=== PATIENT | female | born 1970 | race Caucasian/White ===

== ENCOUNTER 2017-04-07 11:05 | Emergency (ER) | payer OTHER ==
[~2017-04-07] VITALS: Ht 162.6 cm; Wt 58.2 kg
[2017-04-07] MEDS ORDERED: PROZ10 PO (11:57)
[2017-04-07] MEDS ORDERED: TRAZ-144 PO (11:57)
[2017-04-07] MEDS ORDERED: CARB100 PO (11:57)
[2017-04-07] MEDS ORDERED: METF500T4 PO (11:57)
[2017-04-07] MEDS ORDERED: HYDR-4031 PO (11:57)
[2017-04-07 12:03] LABS: GLUCOSE,POINT OF CARE 133 MG/DL (70-110)
[2017-04-07 12:12] VITALS: BP 111/75
== END 2017-04-07 13:51 | disposition home or self-care (01) ==
LOC: EMS 11:36
DX: Z02.89 Encounter for other administrative examinations (principal); E11.9 Type 2 diabetes mellitus without complications
CPT/HCPCS: 82962; 99282; 99283

== ENCOUNTER 2017-04-07 14:37 | Emergency (ER) | payer OTHER ==
[~2017-04-07] VITALS: Ht 162.6 cm; Wt 58.2 kg
[~2017-04-07 14:37] MED LIST: CARB100 PO; HYDR-4031 PO; METF500T4 PO; PROZ10 PO; TRAZ-144 PO
[2017-04-07] MEDS ORDERED: SODIUM CHLORIDE 0.9% 1,000 ML IV ONE (16:45)
[2017-04-07 17:21] LABS: BASOPHILS # (AUTO) 0.03 K/uL (0.00-0.20); BASOPHILS % (AUTO) 0.5 % (0.0-2.0); HEMATOCRIT 39.8 % (36-46); HEMOGLOBIN 13.2 g/dL (12.0-16.0); LYMPHOCYTES # (AUTO) 3.1 K/uL (1.0-4.8); LYMPHOCYTES % (AUTO) 61.7 % (22.0-44.0); MEAN CORPUSCULAR HEMOGLOBIN 32.1 pg (26.0-34.0); MEAN CORPUSCULAR HGB CONC 33.2 G/dL (31.0-37.0); MEAN CORPUSCULAR VOLUME 97 fL (80-100); MONOCYTES # (AUTO) 0.3 K/uL (0.1-1.0); NEUTROPHILS # (AUTO) 1.5 K/uL (1.8-7.7); NEUTROPHILS % (AUTO) 29.8 % (40.0-70.0); PLATELET COUNT (AUTO) 435 K/uL (150-450); RED BLOOD CELL COUNT(AUTO) 4.11 MIL/uL (4.00-5.20); RED CELL DISTRIBUTION WIDTH 14.6 % (11.5-14.5)
[2017-04-07 17:35] LABS: ANION GAP 9 mmol/L (8-16); CALCIUM, TOTAL 8.9 mg/dL (8.8-10.5); CARBON DIOXIDE 30 mmol/L (22-29); CHLORIDE 105 mmol/L (98-107); CREATININE 0.59 mg/dL (0.60-1.30); GLOMERULAR FILTR. RATE CALC > 60 mL/min (>60); SODIUM SERUM 144 mmol/L (136-145); UREA NITROGEN, BLOOD 9 mg/dL (7-18)
[2017-04-07 17:41] LABS: ALANINE AMINOTRANSFERASE 22 U/L (12-78); ALBUMIN 3.7 g/dL (3.4-5.0); ASPARTATE AMINOTRANSFERASE 27 U/L (15-37); BILIRUBIN,TOTAL 0.2 mg/dL (0.1-1.0); TOTAL PROTEIN, SERUM 7.6 g/dL (6.4-8.2)
[2017-04-07] MEDS ORDERED: LORazepam 2 MG/ML VIAL IVP ONE (18:00)
[2017-04-07] MEDS ORDERED: KETOROLAC TROMETHAMINE 30 MG/ML VIAL IVP ONE (18:00)
[2017-04-07 18:05] LABS: RBC MORPHOLOGY COMMENT NORMAL RBC MORPH
[2017-04-07 18:43] VITALS: BP 104/79
== END 2017-04-07 18:51 | disposition home or self-care (01) ==
LOC: EMS 14:49
DX: R51 Headache (principal); E11.9 Type 2 diabetes mellitus without complications
CPT/HCPCS: 36415; 80053; 85025; 93005; 96361; 96374; 96375; 99285; J1885; J2060; J7030

== ENCOUNTER 2022-10-21 08:19 | Emergency (ER) | payer OTHER ==
[~2022-10-21] VITALS: Ht 162.6 cm; Wt 52.8 kg
[~2022-10-21 08:19] MED LIST changes: +FLUO10CA24 PO; -HYDR-4031 PO; +HYDR-4808 PO; +METF-1211 PO; -METF500T4 PO; -PROZ10 PO; -TRAZ-144 PO; +TRAZ-252 PO
[2022-10-21 09:08] LABS: BASOPHILS % (AUTO) 0.4 % (0.0-2.0); EOSINOPHILS % (AUTO) 0.1 % (1.0-6.0); HEMATOCRIT 45.2 % (36-46); HEMOGLOBIN 14.9 g/dL (12.0-16.0); LYMPHOCYTES # (AUTO) 1.6 K/uL (1.0-4.8); LYMPHOCYTES % (AUTO) 14.9 % (22.0-44.0); MEAN CORPUSCULAR HEMOGLOBIN 31.6 pg (26.0-34.0); MEAN CORPUSCULAR VOLUME 96 fL (80-100); MONOCYTES # (AUTO) 0.4 K/uL (0.1-1.0); MONOCYTES % (AUTO) 4.3 % (2.0-9.0); NEUTROPHILS # (AUTO) 8.5 K/uL (1.8-7.7); NEUTROPHILS % (AUTO) 80.3 % (40.0-70.0); PLATELET COUNT (AUTO) 291 K/uL (150-450); RED BLOOD CELL COUNT(AUTO) 4.73 MIL/uL (4.00-5.20); RED CELL DISTRIBUTION WIDTH 13.9 % (11.5-14.5)
[2022-10-21] MEDS ORDERED: ASPIRIN 81 MG CHEWABLE TABLET PO ONE (09:15)
[2022-10-21 09:19] LABS: CALCIUM, TOTAL 9.3 mg/dL (8.8-10.5); CREATININE 1.02 mg/dL (0.60-1.30); POTASSIUM 4.6 mmol/L (3.5-5.1)
[2022-10-21 09:25] LABS: ALBUMIN 4.1 g/dL (3.4-5.0); BILIRUBIN,TOTAL 0.3 mg/dL (0.1-1.0); CARBAMAZEPINE (TEGRETOL) 0.4 mcg/mL (4.0-12.0); TOTAL PROTEIN, SERUM 7.9 g/dL (6.4-8.2)
[2022-10-21 09:27] LABS: PROTHROMBIN TIME 10.9 SEC (9.4-11.6)
[2022-10-21] MEDS ORDERED: CarBAMazepine 200 MG TABLET PO ONE (09:45)
[2022-10-21 09:46] LABS: COVID AG,FIA SOURCE NASOPHARYNGEAL
[2022-10-21] MEDS ORDERED: ACETAMINOPHEN 500 MG TABLET PO ONE (10:00)
[2022-10-21 11:31] LABS: GLUCOSE,POINT OF CARE 274 MG/DL (70-110)
[2022-10-21 12:00] VITALS: BP 132/84
== END 2022-10-21 12:35 | disposition short-term general hospital (02) ==
LOC: EMS 08:24
DX: G40.909 Epilepsy, unspecified, not intractable, without status epilepticus (principal); E11.65 Type 2 diabetes mellitus with hyperglycemia; F41.9 Anxiety disorder, unspecified; Z90.710 Acquired absence of both cervix and uterus; Z20.822 Contact with and (suspected) exposure to COVID-19; Z98.890 Other specified postprocedural states
CPT/HCPCS: 71045; 80053; 80156; 82962; 84484; 85025; 85610; 93005; 99285; 36415-L1; 36415-TC; 70450; 70450-TC